=== PATIENT | male | born 1935 | race Caucasian/White ===

== ENCOUNTER 2016-05-29 11:29 | Emergency (ER) | payer MEDICARE, MEDICAID ==
[2016-05-29] MEDS ORDERED: NORMAL SALINE 1000 ML 1,000 ML IV PRN (12:00)
[2016-05-29 12:12] VITALS: BP 151/58
[2016-05-29 12:33] LABS: ABSOLUTE EOSINOPHILS # (AUTO) 0.8 10^3/uL (0.0-0.6); ABSOLUTE LYMPHOCYTES (AUTO) 0.8 10^3/uL (0.5-4.7); ABSOLUTE MONOCYTES (AUTO) 0.7 10^3/uL (0.1-1.4); ABSOLUTE NEUT (AUTO) 6.9 10^3/uL (1.7-8.2); BASOPHILS % (AUTO) 0.5 % (0-2); EOSINOPHILS % (AUTO) 8.6 % (0-6); HEMOGLOBIN 9.2 g/dL (13.5-17.0); HGB HCT DIFFERENCE 0.6; LYMPHOCYTES % (AUTO) 8.5 % (13-45); MEAN CORPUSCULAR HEMOGLOBIN 31.3 pg (27.0-33.4); MEAN CORPUSCULAR HGB CONC 34.1 g/dL (32.0-36.0); MEAN CORPUSCULAR VOLUME 92 fl (80-97); MONOCYTES % (AUTO) 7.5 % (3-13); RED BLOOD COUNT 2.94 10^6/uL (4.35-5.55); RED CELL DISTRIBUTION WIDTH 16.9 % (11.5-14.0); SEGMENTED NEUTROPHILS % (AUTO) 74.9 % (42-78); WHITE BLOOD COUNT 9.3 10^3/uL (4.0-10.5)
[2016-05-29 12:51] LABS: ALANINE AMINOTRANSFERASE 15 U/L (21-72); ALBUMIN 2.5 g/dL (3.5-5.0); ALKALINE PHOSPHATASE 54 U/L (38-126); ANION GAP 10 (5-19); ASPARTATE AMINO TRANSFERASE 23 U/L (17-59); BILIRUBIN,TOTAL 0.3 mg/dL (0.2-1.3); BLOOD UREA NITROGEN 31 mg/dL (7-20); CALCIUM 8.1 mg/dL (8.4-10.2); CARBON DIOXIDE 27 mmol/L (22-30); CHLORIDE 105 mmol/L (98-107); CREATININE RESULT 1.47 mg/dL (0.52-1.25); GLUCOSE 172 mg/dL (75-110); POTASSIUM 5.1 mmol/L (3.6-5.0); TOTAL PROTEIN 5.3 g/dL (6.3-8.2)
--- NOTE | 2016-05-29 13:15 | ER Document Report ---
ED General - General Chief Complaint: Skin Sore(s) Stated Complaint: BODY PAIN Mode of Arrival: Medic Information source: Patient Notes: 80 yr old male with multiple medical problems presents with rash throughout the body of 1 week duration. pt denies any fevers or chills, medical records note he was seen by derm and diagnosed as topical dermatitis and started on mupirocin topical. pt denies any pain TRAVEL OUTSIDE OF THE [place] IN LAST 30 DAYS: No - HPI Onset: Last week Onset/Duration: Persistent Quality of pain: No pain Severity: Moderate Pain Level: Denies Associated symptoms: Other Exacerbated by: Denies Relieved by: Denies Similar symptoms previously: Yes Recently seen / treated by doctor: Yes - Related Data Allergies/Adverse Reactions: ampicillin Allergy (Verified 05/29/16 11:48) codeine [Codeine] Allergy (Verified 07/09/14 15:43) Past Medical History - Social History Smoking Status: Never Smoker Cigarette use (# per day): No Chew tobacco use (# tins/day): No Smoking Education Provided: No Family History: Reviewed & Not Pertinent - Past Medical History Cardiac Medical History: Reports: Hx Atrial Fibrillation - flutter, Hx Hypercholesterolemia, Hx Hypertension Pulmonary Medical History: Reports: Hx COPD Endocrine Medical History: Reports: Hx Diabetes Mellitus Type 2 GI Medical History: Reports: Hx Gastroesophageal Reflux Disease - Immunizations Hx Diphtheria, Pertussis, Tetanus Vaccination: Yes Review of Systems - Review of Systems Notes: REVIEW OF SYSTEMS: CONSTITUTIONAL : Denies fever, chills, or sweats. Denies recent illness. EENT: Denies eye, ear, throat, or mouth pain or symptoms. Denies nasal or sinus congestion or discharge. Denies throat, tongue, or mouth swelling or difficulty swallowing. CARDIOVASCULAR: Denies chest pain. Denies palpitations or racing or irregular heart beat. Denies ankle edema. RESPIRATORY: Denies cough, cold, or chest congestion. Denies shortness of breath, difficulty breathing, or wheezing. GASTROINTESTINAL: Denies abdominal pain or distention. Denies nausea, vomiting , or diarrhea. Denies blood in vomitus, stools, or per rectum. Denies black, tarry stools. Denies constipation. GENITOURINARY: Denies difficulty urinating, painful urination, burning, frequency, blood in urine, or discharge. MUSCULOSKELETAL: Denies back or neck pain or stiffness. Denies joint pain or swelling. SKIN: admits ot rash on skin HEMATOLOGIC : Denies easy bruising or bleeding. LYMPHATIC: Denies swollen, enlarged glands. NEUROLOGICAL: Denies confusion or altered mental status. Denies passing out or loss of consciousness. Denies dizziness or lightheadedness. Denies headache. Denies weakness or paralysis or loss of use of either side. Denies problems with gait or speech. Denies sensory loss, numbness, or tingling. Denies seizures. PSYCHIATRIC: Denies anxiety or stress. Denies depression, suicidal ideation, or homicidal ideation. ALL OTHER SYSTEMS REVIEWED AND NEGATIVE. Dictation was performed using [employer] voice recognition software PHYSICAL EXAMINATION: GENERAL: elderly male, non toxic appearing male , hx of dementia HEAD: Atraumatic, normocephalic. EYES: Pupils equal round and reactive to light, extraocular movements intact, sclera anicteric, conjunctiva are normal. ENT: Nares patent, oropharynx clear without exudates. Moist mucous membranes. NECK: Normal range of motion, supple without lymphadenopathy LUNGS: cracles at the bases HEART: Regular rate and rhythm without murmurs ABDOMEN: Soft, nontender, nondistended abdomen. No guarding, no rebound. No masses appreciated. Musculoskeletal: Normal range of motion, no pitting or edema. No cyanosis. PSYCH: intermittently confused SKIN: extensive skin sloughing , blisters i nthe left groin, necrotic regions of the left foot and right thigh Physical Exam - Vital signs Vitals: Temp Pulse Resp BP Pulse Ox 98.5 F 87 22 H 151/58 H 97 05/29/16 11:42 05/29/16 11:42 05/29/16 11:42 05/29/16 11:42 05/29/16 11:42 Course - Re-evaluation Re-evalutation: 05/29/16 13:[address] Ashraf who requests due ot lack of derm Called his derm multiple times office is closed called [facility] they do not have derm called [facility] they do not have derm 05/29/16 13:12 05/29/16 14:23 Hospitalist admitted but after evaluating patient requested burn center care [facility] Dr Acevedo accepts 05/29/16 14:43 I was made aware that patient refuses to be transferred. I think this is a terrible decision, I spent 20 min in the room with the patietn and nurse explaining why it is in his best itnerest to get specialty care. Pt is alert to self and place, states he wants ot go home and does not want further treatment. I urged patient to reconsider multiple times but he does not want to go . 05/29/16 15:[address] Ashraf , he does not beleive patient is competent decide for AMA since he is not completely oriented and since patient has a life threatening condition that will require higher level of care. - Vital Signs Vital signs: Temp Pulse Resp BP Pulse Ox 98.5 F 87 22 H 151/58 H 97 05/29/16 11:42 05/29/16 11:42 05/29/16 11:42 05/29/16 11:42 05/29/16 11:42 - Laboratory Result Diagrams: 05/29/16 11:55 05/29/16 11:55 Laboratory results interpreted by me: 05/29/16 05/29/16 11:55 11:55 RBC 2.94 L Hgb 9.2 L Hct 27.0 L RDW 16.9 H Lymphocytes % 8.5 L Eosinophils % 8.6 H Absolute Eosinophils 0.8 H Potassium 5.1 H BUN 31 H Creatinine 1.47 H Est GFR ( Amer) 56 L Est GFR (Non-Af Amer) 46 L Glucose 172 H Calcium 8.1 L ALT 15 L Total Protein 5.3 L Albumin 2.5 L - Diagnostic Test Radiology reviewed: Image reviewed, Reports reviewed Discharge - Discharge Clinical Impression: Rash and nonspecific skin eruption, Sloughing of skin Chronic kidney disease Qualifiers: Chronic kidney disease stage: stage 3 (moderate) Qualified Code(s): N18.3 - Chronic kidney disease, stage 3 (moderate) Condition: Serious Disposition: AGAINST MEDICAL ADVICE Admitting Provider: Hospitalist Unit Admitted: Medical Floor
--- NOTE | 2016-05-29 15:15 | PDOC CONSULTATION ---
Consultation Consult Date: 05/29/16 Consult reason:: Skin lesions History of Present Illness Admission Date/PCP: 05/29/16 14:11 RHIANNA WALLACE MD Patient complains of: Skin lesions History of Present Illness: LAURYN MAXWELL is a 80 year old male that is transferred to the emergency department from [facility] for multiple skin lesions. Patient apparently had scabies about 3 months ago that was treated with a topical cream and resolved. About 2 weeks ago patient started to have bullous skin lesions with erosions over his proximal extremities and trunk. He was treated by his primary care provider with a Medrol dosepak. He had no response to steroids. He was seen by Dr. Salgado of dermatology on 05/25 and diagnosed with "irritant dermatitis". Dr. Salgado gave him a prescription for Bactroban ointment, however these lesions involve half of the patient's body and he was given a small tube of ointment. Needless to say patient is not getting better. He does not complain of pain in these lesions. His history is very limited by advanced dementia. Past Medical History Cardiac Medical History: Reports: Atrial Fibrillation - flutter, Congestive Heart Failure - Left ventricular diastolic dysfunction, Hyperlipidema, Hypertension Pulmonary Medical History: Reports: Chronic Obstructive Pulmonary Disease (COPD) Endocrine Medical History: Reports: Diabetes Mellitus Type 2 Renal/ Medical History: Reports: Chronic Kidney Disease - Stage III GI Medical History: Reports: Gastroesophageal Reflux Disease Musculoskeltal Medical History: Reports: Gout Hematology: Reports: Anemia Past Surgical History Past Surgical History: Reports: Herniorrhaphy Social History Information Source: Emergency Med Personnel, Outside Facility Records Lives with: Detention Smoking Status: Never Smoker Frequency of Alcohol Use: None Hx Recreational Drug Use: No Hx Prescription Drug Abuse: No - Advance Directive Resuscitation Status: Full Code Family History Family History: CAD, DM, Hypertension Parental Family History Reviewed: Yes Children Family History Reviewed: Yes Sibling(s) Family History Reviewed.: Yes Medication/Allergy Home Medications: Albuterol Sulfate [Ventolin Hfa] 2 puff IH Q4HP PRN #17 gm 08/27/13 Aspirin [Aspirin 81 mg Chewable Tablet] 81 mg PO DAILY 08/27/13 Atenolol [Tenormin 25 mg Tablet] 12.5 mg PO Q12H 08/27/13 Atorvastatin Calcium [Lipitor 20 mg Tablet] 20 mg PO QHS 08/27/13 Cholecalciferol (Vitamin D3) [Vitamin D] 50,000 units PO Q7D 08/27/13 Doxazosin Mesylate [Cardura 4 mg Tablet] 4 mg PO DAILY 08/27/13 Ezetimibe [Zetia 10 mg Tablet] 10 mg PO DAILY 08/27/13 Fluticasone Propionate [Flonase Nasal [place] 50 Mcg/[place] 16 gm] 2 spray NASL DAILY 08/27/13 Gabapentin [Neurontin 100 mg Capsule] 200 mg PO QHS 08/27/13 Glipizide/Metformin HCl [Metaglip 2.5-250 mg Tablet] 1 tab PO Q12H 08/27/13 Hydrocodone/Acetaminophen [[place] 5-325 Tablet] 1 tab PO QAM 08/27/13 Ipratropium/Albuterol Sulfate [Duoneb 3 ml Ampul] 3 inh IH Q4HP PRN 08/27/13 Lisinopril [Zestril] 2.5 mg PO DAILY 08/27/13 [place]-3 Fatty Acids [Fish Oil] 1,000 mg PO DAILY 08/27/13 Prednisone [Deltasone 20 mg Tablet] 40 mg PO DAILY #10 tablet 08/27/13 Sennosides [Senokot To Go] 1 tab PO QHS 08/27/13 Allergies/Adverse Reactions: ampicillin Allergy (Verified 05/29/16 11:48) codeine [Codeine] Allergy (Verified 07/09/14 15:43) Review of Systems ROS unobtainable: Due to mental status - Advanced dementia Physical Exam Vital Signs: Temp Pulse Resp BP Pulse Ox 98.5 F 87 22 H 151/58 H 97 05/29/16 11:42 05/29/16 11:42 05/29/16 11:42 05/29/16 11:42 05/29/16 11:42 PHYSICAL EXAM: GENERAL: Appears well, no acute distress HEENT: Normocephalic, no scleral icterus, conjunctiva clear, EOEM intact, PERRLA , moist mucous membranes, poor dental hygiene NECK: trachea midline, no thyromegally RESPIRATORY: Clear to auscultation, no wheezes/rhonchi CARDIAC: Irregularly irregular ABDOMEN: Soft, no distension, no tenderness, no guarding, normal bowel sounds, negative Forte sign RECTAL: deferred : deferred EXTREMITIES: No edema, cyanosis, clubbing MUSCULOSKELETAL: No joint swelling or deformity VASCULAR: normal peripheral pulses NEUROLOGIC: Alert, oriented to person only, normal speech, cranial nerves grossly intact, 5/5 strength in all extremities, tactile sensation intact in all extremities SKIN: Diffuse bullous lesions over all 4 extremities and anterior trunk, some intact/some interrupted and weeping, no significant surrounding erythema/ induration PSYCHIATRIC: Flat affect Results Laboratory Results: Labs- All tests 24 hr 05/29/16 05/29/16 11:55 11:55 WBC 9.3 RBC 2.94 L Hgb 9.2 L Hct 27.0 L MCV 92 MCH 31.3 MCHC 34.1 RDW 16.9 H Plt Count 268 Seg Neutrophils % 74.9 Lymphocytes % 8.5 L Monocytes % 7.5 Eosinophils % 8.6 H Basophils % 0.5 Absolute Neutrophils 6.9 Absolute Lymphocytes 0.8 Absolute Monocytes 0.7 Absolute Eosinophils 0.8 H Absolute Basophils 0.0 Sodium 142.0 Potassium 5.1 H Chloride 105 Carbon Dioxide 27 Anion Gap 10 BUN 31 H Creatinine 1.47 H Est GFR ( Amer) 56 L Est GFR (Non-Af Amer) 46 L Glucose 172 H Calcium 8.1 L Total Bilirubin 0.3 Direct Bilirubin 0.0 AST 23 ALT 15 L Alkaline Phosphatase 54 Total Protein 5.3 L Albumin 2.5 L Assessment & Plan - Time Time Spent: Greater than 70 Minutes Anticipated discharge: Tertiary Hospital Disposition: ASSESSMENT/PLAN: 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 Exact etiology unknown. Patient failed outpatient Medrol Dosepak. Differential diagnosis includes vasculitis, endocarditis, cardioembolic event from atrial fibrillation.
== END 2016-05-29 16:37 | disposition short-term general hospital (02) ==
LOC: ER 11:29 → UNDOADMOB 14:11 → EH 14:11 → UNDODISOB 15:00 → EH 16:37
DX: R21 Rash and other nonspecific skin eruption (principal); I96 Gangrene, not elsewhere classified; N18.3 Chronic kidney disease, stage 3 (moderate); M79.1 Myalgia; L51.1 Stevens-Johnson syndrome; I48.92 Unspecified atrial flutter; E78.00 Pure hypercholesterolemia, unspecified; J44.9 Chronic obstructive pulmonary disease, unspecified; E11.9 Type 2 diabetes mellitus without complications; I13.0 Hypertensive heart and chronic kidney disease with heart failure and stage 1 through stage 4 chronic kidney disease, or unspecified chronic kidney disease; I50.1 Left ventricular failure, unspecified; Z88.0 Allergy status to penicillin; Z88.6 Allergy status to analgesic agent; Z79.899 Other long term (current) drug therapy; Z79.82 Long term (current) use of aspirin
CPT/HCPCS: 99284; 96360; 96361; 36415; 87040; 85025; 80053; J7030